=== PATIENT | male | born 1955 | race Caucasian/White ===

== ENCOUNTER 2016-09-03 10:05 | Emergency (ER) | payer OTHER ==
[~2016-09-03] VITALS: Ht 170.2 cm; Wt 76.0 kg
[~2016-09-03 10:05] MED LIST: LEVO500T10 PO; TERA5CAP3 PO
[2016-09-03 10:16] VITALS: Ht 170.2 cm; Wt 76.0 kg
[2016-09-03] MEDS ORDERED: SOD CHLORIDE 0.9% 1,000 ML IV STA (10:57)
[2016-09-03] MEDS ORDERED: KETOROLAC 30 MG INJ IV STA (10:57)
[2016-09-03 11:35] LABS: ADD SCAN DIFF NO
[2016-09-03 11:39] LABS: ABNORMAL IP MESSAGE 1; HEMOGLOBIN 13.3 g/dl (14.0-18.0); MEAN CORPUSCULAR HEMOGLOBIN 30.2 pg (29.0-33.0); MEAN CORPUSCULAR HGB CONC 33.3 g/dl (32.0-37.0); MEAN CORPUSCULAR VOLUME 90.9 fl (82.0-101.0); MEAN PLATELET VOLUME 9.6 fl (7.4-10.4); PLATELET COUNT 194 10^3/UL (140-415); WHITE BLOOD COUNT 25.2 10^3/ul (4.8-10.8)
[2016-09-03 11:40] LABS: ADD UMIC YES; URINE BILIRUBIN (Dip) NEGATIVE (NEGATIVE); URINE BLOOD (Dip) 2+ (NEGATIVE); URINE COLOR YELLOW (YELLOW); URINE GLUCOSE (Dip) NEGATIVE (NEGATIVE); URINE KETONES (Dip) NEGATIVE (NEGATIVE); URINE LEUKOCYTE ESTERASE (Dip) TRACE (NEGATIVE); URINE NITRITE (Dip) NEGATIVE (NEGATIVE); URINE TOTAL PROTEIN (Dip) TRACE (NEGATIVE); URINE UROBILINOGEN (Dip) 0.2 E.U./dL (0.1-1.0)
[2016-09-03 11:48] LABS: ALBUMIN 4.2 g/dl (3.3-4.9); POTASSIUM 3.2 mmol/L (3.5-5.1)
[2016-09-03 11:50] LABS: CREATININE 1.06 mg/dl (0.61-1.24)
[2016-09-03 11:51] LABS: ALBUMIN/GLOBULIN RATIO 1.35; BACTERIA,URINE OCCASIONAL; BILIRUBIN,INDIRECT 1.4 mg/dl (0-1.1); BILIRUBIN,TOTAL 1.4 mg/dl (0.2-1.3); CALCIUM 9.1 mg/dl (8.4-10.2); TOTAL PROTEIN 7.3 g/dl (6.1-8.1)
[2016-09-03 12:16] LABS: LYMPHOCYTES # 1.3 10^3/ul (0.8-2.9); MONOCYTE # 0.8 10^3/ul (0.3-0.9); NEUTROPHIL # 17.9 10^3/ul (1.6-7.5)
[2016-09-03 12:18] LABS: PLATELET ESTIMATE PLT APPEAR ADEQUATE
--- NOTE | 2016-09-03 13:29 | RADRPT ---
PROCEDURE: US Scrotum. CLINICAL INDICATION: Right scrotal pain. TECHNIQUE: Multiple sonographic images of the scrotal region were obtained utilizing a linear arra y transducer with grayscale and color-flow and pulsed Doppler imaging. The images were reviewed on a high-resolution PACS workstation. COMPARISON: No prior studies are available for comparison. FINDINGS: The right testis measures 4.7 x 3.4 x 3.4 cm. The left testis measures 4.0 x 2.1 x 2.4 cm. There is no intratesticular mass. There is a benign right epididymal cyst measuring 0.8 x 0.5 cm. The right epididymis is enlarged an d hyperemic consistent with epididymitis. There is a benign left epididymal cyst measuring 0.6 x 0. 3 cm. The left epididymis is otherwise normal. There is mildly increased flow to the right testis with color Doppler and pulsed Doppler sonography. The left testis demonstrates normal flow with color Doppler and pulsed Doppler sonography. There are small bilateral hydroceles. There is no varicocele. The scrotal wall is unremarkable. IMPRESSION: 1. Right epididymitis and mild right orchitis. 2. Benign bilateral epididymal cysts. 3. Small bilateral hydroceles. 4. Otherwise unremarkable study. RPTAT: QQ .Andrew Oconnor MD, MD Date Time Electronically viewed and signed by .Andrew Oconnor MD, on 09/03/2016 13:29 .R/
[2016-09-03] MEDS ORDERED: CEFTRIAXONE 1 GM/50 ML (PMX) 50 ML IVPB ONE (14:00)
[2016-09-03] MEDS ORDERED: IBUP400T22 PO (14:39)
[2016-09-03] MEDS ORDERED: CIPR500T4 PO (14:39)
[2016-09-03 14:57] VITALS: BP 128/86; PULSE 74; RESP 19; TEMP 98.5
--- NOTE | 2016-09-03 15:27 | ERD ---
ER Documentation Chief Complaint Date/Time DATE: 09/03/16 TIME: 15:21 Chief Complaint L Swollen testicle, hematuria, chills, low apetite. HPI 61-year-old male with a past medical history of BPH presents the ED complaining of right testicular pain that started 4 days ago. States that he started to have chills and loss of appetite. Reports that his urine is very dark and has slight dysuria. States that he feels slightly weak and has incontinence. States that however he still able to urinate. States that he is not sexually active. Patient has not had sexual intercourse for the last 2 years. Denies any urgency, frequency, flank pain, abdominal pain, nausea, vomiting, chest pain , shortness of breath. ROS All systems reviewed and are negative except as per history of present illness. Medications Home Meds Active Scripts Ibuprofen* (Motrin*) 400 Mg Tab, 400 MG PO Q6, #30 TAB Prov:FANNY HARDY PA-C 09/03/16 Ciprofloxacin Hcl* (Ciprofloxacin Hcl*) 500 Mg Tablet, 500 MG PO BID for 10 Days , TAB Prov:FANNY HARDY PA-C 09/03/16 Levofloxacin* (Levofloxacin*) 500 Mg Tablet, 500 MG PO DAILY, #10 TAB Prov:SAM KENT MD 06/12/16 Terazosin Hcl* (Terazosin Hcl*) 5 Mg Capsule, 5 MG PO HS, #60 CAP Prov:SAM KENT MD 06/12/16 Allergies Allergies: Coded Allergies: No Known Allergies (Verified Allergy, Unknown, 06/07/16) PMhx/Soc History of Surgery: No Anesthesia Reaction: No Hx Neurological Disorder: No Hx Respiratory Disorders: No Hx Cardiac Disorders: Yes (HYPERCHOLESTEROL) Hx Psychiatric Problems: No Hx Miscellaneous Medical Probl: No Hx Alcohol Use: No Hx Substance Use: No Hx Tobacco Use: No Smoking Status: Never smoker Physical Exam Vitals Vital Signs Date Time Temp Pulse Resp B/P Pulse Ox O2 Delivery O2 Flow Rate FiO2 09/03/16 14:57 98.5 74 19 128/86 100 Room Air 09/03/16 10:16 97.6 124 22 112/53 98 Physical Exam Const: [id number], well-nourished. In no acute distress. Head: Atraumatic, normocephalic Eyes: Normal Conjunctiva without injection. No purulent discharge. ENT: Normal external ear, nose. Moist oropharynx without tonsillar exudates. Non -erythematous pharynx. Uvula midline. No drooling. No trismus. Neck: No cervical midline tenderness. Full range of motion. No meningismus. No cervical lymphadenopathy. No JVD. Resp: Clear to auscultation bilaterally. No wheezing, rhonchi, rales, or crackles. No accessory muscle use. No retractions. Cardio: Regular rate and rhythm. No murmurs, rubs or gallops. Abd: Soft, nontender, non distended. Normal bowel sounds. No palpable masses. No rebound tenderness. No guarding. Negative McBurney's point. Negative psoas sign. Negative obturator sign. : Circumcised penis. No penile discharge noted. No phimosis. No paraphimosis. Right scrotal tenderness noted. Erythematous and warm to touch right testicle. No perineal tenderness. Skin: No petechiae or rashes Back: No midline tenderness. No CVA tenderness. Ext: No cyanosis, or edema. Neur: Awake and alert. Normal gait. Normal coordination. Psych: Normal Mood and Affect Result Diagram: 09/03/16 1113 09/03/16 1113 Results 24 hrs Laboratory Tests Test 09/03/16 11:13 Alanine Aminotransferase (ALT/SGPT) 17IU/L Albumin 4.2g/dl Albumin/Globulin Ratio 1.35 Alkaline Phosphatase 80IU/L Anion Gap 21 Aspartate Amino Transf (AST/SGOT) 19IU/L Band Neutrophils % 21.0% Blood Urea Nitrogen 22mg/dl Calcium Level 9.1mg/dl Carbon Dioxide Level 25mmol/L Chloride Level 97mmol/L Creatinine 1.06mg/dl Direct Bilirubin 0.00mg/dl Eosinophils # 10^3/ul Eosinophils % % Globulin 3.10g/dl Glucose Level 191mg/dl Hematocrit 40.0% Hemoglobin 13.3g/dl Indirect Bilirubin 1.4mg/dl Lipase 12U/L Lymphocytes # 1.310^3/ul Lymphocytes % 5.0% Mean Corpuscular Hemoglobin 30.2pg Mean Corpuscular Hemoglobin Concent 33.3g/dl Mean Corpuscular Volume 90.9fl Mean Platelet Volume 9.6fl Monocytes # 0.810^3/ul Monocytes % 3.0% Neutrophils # 17.910^3/ul Neutrophils % 71.0% Platelet Count 07565^3/UL Platelet Estimate PLT APPEAR ADEQUATE Potassium Level 3.2mmol/L Red Blood Count 4.4010^6/ul Red Cell Distribution Width 13.0% Sodium Level 140mmol/L Total Bilirubin 1.4mg/dl Total Protein 7.3g/dl Urine Bacteria OCCASIONAL Urine Bilirubin NEGATIVE Urine Clarity CLEAR Urine Color YELLOW Urine Glucose NEGATIVE% Urine Hemoglobin 2+ Urine Ketones NEGATIVE Urine Leukocyte Esterase TRACE Urine Microscopic RBC 2-5/HPF Urine Microscopic WBC 2-5/HPF Urine Nitrite NEGATIVE Urine Specific [place] 1.020 Urine Total Protein TRACE Urine Urobilinogen 0.2 E.U./dL Urine pH 6.0 White Blood Count 25.210^3/ul Current Medications Medications (Trade) Dose Ordered Sig/Jimmy Route PRN Reason Start Time Stop Time Status Last Admin Dose Admin Sodium Chloride (NS) 1,000 ml @ 1,000 mls/hr Q1H STAT IV 09/03/16 10:57 09/03/16 11:56 DC 09/03/16 11:20 Ketorolac Tromethamine 30 mg 30 mg ONCE STAT IV 09/03/16 10:57 09/03/16 10:59 DC 09/03/16 11:20 Ceftriaxone Sodium (Rocephin) 50 ml @ 100 mls/hr ONCE ONCE IVPB 09/03/16 14:00 09/03/16 14:29 DC 09/03/16 14:11 Procedures/MDM This is a 61-year-old male with a past medical history of prostate problems presents to the ED complaining of right testicular pain and dysuria. Patient is afebrile and nontoxic-appearing. Patient has normal vital signs. Patient was treated here in the ED with 30 mg IV ketorolac, 1 L normal saline. Patient was further evaluated with a scrotal ultrasound, CBC, CMP, UA, urine culture. PROCEDURE: US Scrotum. CLINICAL INDICATION: Right scrotal pain. TECHNIQUE: Multiple sonographic images of the scrotal region were obtained utilizing a linear array transducer with grayscale and color-flow and pulsed Doppler imaging. The images were reviewed on a high-resolution PACS workstation. COMPARISON: No prior studies are available for comparison. FINDINGS: The right testis measures 4.7 x 3.4 x 3.4 cm. The left testis measures 4.0 x 2.1 x 2.4 cm. There is no intratesticular mass. There is a benign right epididymal cyst measuring 0.8 x 0.5 cm. The right epididymis is enlarged and hyperemic consistent with epididymitis. There is a benign left epididymal cyst measuring 0.6 x 0.3 cm. The left epididymis is otherwise normal. There is mildly increased flow to the right testis with color Doppler and pulsed Doppler sonography. The left testis demonstrates normal flow with color Doppler and pulsed Doppler sonography. There are small bilateral hydroceles. There is no varicocele. The scrotal wall is unremarkable. IMPRESSION: 1. Right epididymitis and mild right orchitis. 2. Benign bilateral epididymal cysts. 3. Small bilateral hydroceles. 4. Otherwise unremarkable study. Patient symptoms are likely due to epididymitis and orchitis. There is low suspicion for testicular torsion, gastritis, GERD, peptic ulcer disease, cholecystitis, choledocholithiasis, cholangitis, pancreatitis, appendicitis, bowel obstruction, ileus, volvulus, nephrolithiasis, pyelonephritis, hepatitis, perforated viscus, diverticulitis, abdominal hernia, acute abdomen, mesenteric ischemia or other emergent conditions. CBC: Leukocytosis of 25 noted likely secondary to epididymitis. No e/o anemia. CMP: No e/o severe acidosis, alkalosis, renal failure, diabetic ketoacidosis, liver disease Lipase within normal limits. Urine: Trace leukocyte esterase with WBC 2-5, no nitrites, no hematuria. This case was discussed with my supervising physician, Dr. Jacobson stated that patient can be managed on outpatient basis. Discharge medications: Ciprofloxacin, Ibuprofen Follow up with primary care physician in 1-2 days for referral to urologist. Instructed patient to return to the ED sooner for any worsening symptoms. Patient's questions were answered. Patient understood and agreed with discharge plan. Patient discharged stable. Departure Diagnosis: Primary Impression: Orchitis and epididymitis Condition: Stable Patient Instructions: Treating Epididymitis and Orchitis, What Are Epididymitis and Orchitis? Referrals: [facility] Usted se woo hecho un examen mdico de control que le indica que no est en marina condicin que requiera tratamiento urgente en el Departamento de Emergencia. Un estudio ms profundo y el tratamiento de holbrook condicin pueden esperar sin ningn riesgo hasta que usted sea atendida/o en el consultorio de holbrook mdico o marina cl shannan. Es responsabilidad suya arreglar marina fany para el seguimiento del mahesh. MANEJO DE CONDICIONES NO URGENTES EN EL FUTURO 1) Si usted tiene un mdico de atencin primaria: Usted debera llamar a holbrook mdico de atencin primaria antes de venir al departamento de emergencia. Despus de las horas de consultorio, holbrook doctor o holbrook asociado/a est disponible por telfono. El mdico o enfermero de brenna en el servicio telefnico puede asesorarle por aaron medio para atender el problema, o mahesh contrario se puede programar marina fany. 2) Si usted no tiene un mdico de atencin primaria: Llame al mdico o clnica de referencia que aparece abajo estefany las horas de consultorio para hacer marina fany para que le vean. CLINICAS: [facility] [phone] [facility] [phone] [facility] [facility] [facility] [phone] [address] [facility]. [facility] [phone] [address] [place] [id number] [phone] [facility]. [phone] [facility] () Usted se woo hecho un examen mdico de control que le indica que no est en marina condicin que requiera tratamiento urgente en el Departamento de Emergencia. Un estudio ms profundo y el tratamiento de holbrook condicin pueden esperar sin ningn riesgo hasta que usted sea atendida/o en el consultorio de holbrook mdico o marina cl shannan. Es responsabilidad suya arreglar marina fany para el seguimiento del mahesh. MANEJO DE CONDICIONES NO URGENTES EN EL FUTURO 1) Si usted tiene un mdico de atencin primaria: Usted debera llamar a holbrook mdico de atencin primaria antes de venir al departamento de emergencia. Despus de las horas de consultorio, holbrook doctor o holbrook asociado/a est disponible por telfono. El mdico o enfermero de brenna en el servicio telefnico puede asesorarle por aaron medio para atender el problema, o mahesh contrario se puede programar marina fany. 2) Si usted no tiene un mdico de atencin primaria: Llame al mdico o condado institucions de referencia que aparece abajo estefany las horas de consultorio para hacer marina fany para que le vean. SI USTED NO PUEDE PAGAR PARA BARRETT UN MEDICO puede ir a: [facility] [id number] [place] [address] [facility] [address] [place] [address] [facility] [address] [place] [address] [facility] [address] [place], [place] [phone] Additional Instructions: Visite a holbrook mdico maana para un EXAMEN para marina derivacin al urlogo. Regrese a estas instalaciones si no se mejora desirae esperbamos o desirae le dijimos. FANNY HARDY PA-C Sep 03, 2016 15:27
== END 2016-09-03 14:58 | disposition home or self-care (01) ==
LOC: FTE 10:05
DX: N45.2 Orchitis (principal); N45.1 Epididymitis
CPT/HCPCS: 36415; 76870; 80053; 81001; 83690; 85025; 87086; 96374; 96375; J0696; J1885; J7030; Z7502; 81003